=== PATIENT | female | born 1955 | race Two or more races ===

== ENCOUNTER 2020-10-10 07:00 | Day surgery (SDC) | payer OTHER ==
[~2020-10-10] VITALS: Ht 162.6 cm; Wt 76.2 kg
[~2020-10-10 07:00] MED LIST: ALTACE5 MG PO; FLEXERIL PO; GABAPEN PO; NEXIUM 24HR20 M1 PO; RELAF PO
[2020-10-10] MEDS ORDERED: OXYC1TAB9 PO (07:42)
[2020-10-10] MEDS ORDERED: CLONAZEPAM1 MG PO (07:42)
[2020-10-10] MEDS ORDERED: COLACE100 MG PO (07:42)
[2020-10-10] MEDS ORDERED: MEDROLPACK PO (09:05)
== END 2020-10-10 11:00 | disposition home or self-care (01) ==
LOC: SURH 07:00 → CIR.AMB 07:00 → SURH 07:30 → EDSTATUS 07:30 → CIR.AMB 08:00 → O/R 11:40
PROVIDERS: ATTEND Orthopaedic Surgery Orthopaedic Surgery of the Spine
DX: M50.01 Cervical disc disorder with myelopathy, high cervical region (principal); Z03.818 Encounter for observation for suspected exposure to other biological agents ruled out
CPT/HCPCS: 20939; 22551; 22845; C1776

== ENCOUNTER 2021-05-21 10:15 | Inpatient (IN) | payer OTHER ==
[~2021-05-21] VITALS: Ht 162.6 cm; Wt 76.2 kg
[~2021-05-21 10:15] MED LIST changes: +CLONAZEPAM1 MG PO; +COLACE100 MG PO; +MEDROLPACK PO; +OXYC1TAB9 PO
[2021-05-21] MEDS ORDERED: COZAAR25 MG PO (13:32)
[2021-05-21] MEDS ORDERED: ZANAFLEX4 M1 PO (13:32)
[2021-05-25] MEDS ORDERED: RESTORIL15 MG (08:16)
[2021-05-25] MEDS ORDERED: RAMIPRIL5 MG (08:16)
[2021-05-25] MEDS ORDERED: ATORVASTATIN CA20 MG (08:16)
[2021-05-25] MEDS ORDERED: FLONASE16 GM (08:16)
[2021-05-25] MEDS ORDERED: APETIGEN L790 MG/15 (08:16)
== END 2021-05-25 13:28 | disposition home or self-care (01) | DRG 743 ==
LOC: O/R 05-24 06:10 → SURH 05-24 06:10
PROVIDERS: ADMIT Obstetrics & Gynecology Gynecologic Oncology; ATTEND Obstetrics & Gynecology Gynecologic Oncology
PROC: 0UT24ZZ Resection of Bilateral Ovaries, Percutaneous Endoscopic Approach (ICD-10-PCS; 2021-05-24)
PROC: 0UT74ZZ Resection of Bilateral Fallopian Tubes, Percutaneous Endoscopic Approach (ICD-10-PCS; 2021-05-24)
PROC: 07BC4ZZ Excision of Pelvis Lymphatic, Percutaneous Endoscopic Approach (ICD-10-PCS; 2021-05-24)
PROC: 0UT94ZZ Resection of Uterus, Percutaneous Endoscopic Approach (ICD-10-PCS; principal; 2021-05-24 13:30)
DX: D27.1 Benign neoplasm of left ovary (principal); D25.1 Intramural leiomyoma of uterus; N72 Inflammatory disease of cervix uteri; N85.8 Other specified noninflammatory disorders of uterus